=== PATIENT | female | born 1980 | race American Indian/Alaskan Native ===

== ENCOUNTER 2022-01-06 16:26 | Emergency (ER) | payer SELFPAY ==
[2022-01-06] MEDS ORDERED: FLUORESCEIN 1 MG STRIP OP ONE (16:44)
[2022-01-06] MEDS ORDERED: TETRACAINE 0.5% OPHTH SOLN 4ML OU ONE (16:44)
[2022-01-06] MEDS ORDERED: TOBRAMYCIN 0.3% OPHTH SOLN 5 ML OU ONE (16:44)
--- NOTE | 2022-01-06 16:49 | Event Note ---
ED Screening Note ED Screening Note: b eye irritation dec vision contact lenses out This initial assessment/diagnostic orders/clinical plan/treatment(s) is/are subject to change based on patients health status, clinical progression and re- assessment by fellow clinical providers in the ED. Further treatment and workup at subsequent clinical providers discretion. Patient/guardian urged not to elope from the ED as their condition may be serious if not clinically assessed and managed. Initial orders include: eye eval
--- NOTE | 2022-01-06 17:12 | Emergency Department Report ---
ED Eye Problem HPI - General Chief complaint: Eye Problems Stated complaint: IRRITATED EYE Time Seen by Provider: 01/06/22 17:03 Source: patient Mode of arrival: Ambulatory Limitations: No Limitations - History of Present Illness MD chief complaint: eye pain, eye redness, vision change -: days(s) (1) Onset Description: awoke with symptoms Location: right eye If Injury: none Eye Symptoms: burning, redness If Pain, Quality: burning Consistency: constant - Related Data Previous Rx's Medication Instructions Recorded Last Taken Type Ketorolac Tromethamin 0.4%(Nf) 1 drop OP QID #1 bottle 01/06/22 Unknown Rx [Acular Ls 0.4% Ophth Stephanie] Tobramycin 0.3% [Tobrex] 1 drop OU Q8HR #1 bottle 01/06/22 Unknown Rx Allergies Allergy/AdvReac Type Severity Reaction Status Date / Time diphenhydramine Allergy Unknown Verified 01/06/22 16:34 [From Benadryl] ED Review of Systems ROS: Stated complaint: IRRITATED EYE Other details as noted in HPI Comment: All other systems reviewed and negative ED Past Medical Hx - Medications Home Medications: Home Medications Medication Instructions Recorded Confirmed Last Taken Type Ketorolac Tromethamin 0.4%(Nf) 1 drop OP QID #1 bottle 01/06/22 Unknown Rx [Acular Ls 0.4% Ophth Stephanie] Tobramycin 0.3% [Tobrex] 1 drop OU Q8HR #1 bottle 01/06/22 Unknown Rx ED Physical Exam - General Limitations: No Limitations General appearance: alert, in no apparent distress - Head Head exam: Present: atraumatic, normocephalic - Eye Eye exam: Present: normal appearance, PERRL, conjunctival injection Pupils: Present: other (No increased fluorescein uptake) - Expanded Eye Exam Expanded Eyelids: Erythema: Right Sclera/Conjunctival: Injection: Right - ENT ENT exam: Present: normal exam, mucous membranes moist - Neck Neck exam: Present: normal inspection - Respiratory Respiratory exam: Present: normal lung sounds bilaterally. Absent: respiratory distress - Cardiovascular Cardiovascular Exam: Present: regular rate, normal rhythm. Absent: systolic murmur, diastolic murmur, rubs, gallop - GI/Abdominal GI/Abdominal exam: Present: soft, normal bowel sounds - Extremities Exam Extremities exam: Present: normal inspection - Back Exam Back exam: Present: normal inspection - Neurological Exam Neurological exam: Present: alert, oriented X3 - Psychiatric Psychiatric exam: Present: normal affect, normal mood - Skin Skin exam: Present: warm, dry, intact, normal color. Absent: rash ED Course Vital Signs 01/06/22 16:37 Temperature 98.6 F Pulse Rate 78 Respiratory 16 Rate Blood Pressure 165/94 [Left] O2 Sat by Pulse 99 Oximetry ED Medical Decision Making - Medical Decision Making Scleral injection. No recent eye trauma suspected microtrauma. Negative Gerardo sign. She is experiencing some photophobia. Given history and exam I have low suspicion for corneal abrasion or corneal ulcer, globe rupture, uveitis, HSV keratitis, endophthalmitis, retinal detachment, angle-closure glaucoma, foreign body. Plan is to discharge home with primary care and ophthalmologic follow-up within 48 hours if not resolving Contact lens wearer so utilize of ofloxacin 0.5% ophthalmologic solution 1 to 2 drops every 2 hours for 2 days then in of 6 hours for 5 days. Critical care attestation.: If time is entered above; I have spent that time in minutes in the direct care of this critically ill patient, excluding procedure time. ED Disposition Clinical Impression: Conjunctivitis Disposition: 01 HOME / SELF CARE / HOMELESS Is pt being admited?: No Does the pt Need Aspirin: No Condition: Stable Instructions: How to Use Eye Drops and Eye Ointments, Viral Conjunctivitis, Adult Prescriptions: Ketorolac Tromethamin 0.4%(Nf) [Acular Ls 0.4% Ophth Stephanie] 1 drop OP QID #1 bottle Tobramycin 0.3% [Tobrex] 1 drop OU Q8HR #1 bottle Referrals: [facility] [Provider Group] - 3-5 Days
[2022-01-06 18:05] VITALS: BP 138/78
== END 2022-01-06 19:00 | disposition home or self-care (01) ==
LOC: ED 16:26
DX: H10.9 Unspecified conjunctivitis (principal)
CPT/HCPCS: 99282